=== PATIENT | female | born 1935 ===

== ENCOUNTER 2017-09-23 10:40 | Outpatient (CLI) | payer MEDICARE ==
--- NOTE | 2017-09-23 11:43 | XRay Report ---
Right wrist 3 views. History: Wrist pain. Findings: No fracture identified. There is increased distance between the scaphoid and the lunate bones. There is normal alignment of the remainder of the carpal bones. The radioulnar joint is normal. There is no significant narrowing of the joint spaces and no periarticular osteoporosis is seen. 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 Clinical correlation is advised.
== END 2017-09-23 10:41 | disposition home or self-care (01) ==
LOC: SPVIMAG 10:40
PROVIDERS: ATTEND Orthopaedic Surgery Sports Medicine
DX: M25.531 Pain in right wrist (principal)